=== PATIENT | female | born 1985 | race Caucasian/White ===

== ENCOUNTER 2018-10-21 05:21 | Emergency (ER) | payer BC ==
--- NOTE | 2018-10-21 05:44 | EDM.PDOC ---
ED HPI GENERAL MEDICAL PROBLEM - General Chief Complaint: Back Pain or Injury Stated Complaint: back pain Time Seen by Provider: 10/21/18 05:43 - History of Present Illness INITIAL COMMENTS - FREE TEXT/NARRATIVE: 33-year-old female presents emergency room with low back pain. Patient is an on-and-off low back pain for the last 4 weeks or so. She is 10 weeks . 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 She denies burning or frequency with urination. No fevers or chills. Her course is uneventful. Patient has not been using nonsteroidal anti-inflammatory medications as she is post gastric bypass surgery. Patient has not had any loss of bowel or bladder control no lower extremity like radicular symptoms. Lower Back Pain Score (Numeric/FACES): 8 - Related Data Allergies Allergy/AdvReac Type Severity Reaction Status Date / Time amoxicillin Allergy Anaphylactic Verified 10/21/18 05:37 Shock azithromycin [From Zithromax] Allergy Hives Verified 10/21/18 05:37 cephalexin [From Keflex] Allergy Hives Verified 10/21/18 05:37 Latex, Natural Rubber Allergy Rash Verified 10/21/18 05:37 Penicillins Allergy Anaphylactic Verified 10/21/18 05:37 Shock Home Meds: Home Meds Cyclobenzaprine [Flexeril] 10 mg PO BEDTIME #15 tab 10/21/18 [Rx] Past Medical History HEENT History: Reports: Impaired Vision (wears glasses) Gastrointestinal History: Reports: GER[employer] History: Reports: Polycystic Ovaries Psychiatric History: Reports: Anxiety (history of, took medications until 2016) Endocrine/Metabolic History: Reports: Obesity/BMI 30+ - Past Surgical History HEENT Surgical History: Reports: Tonsillectomy (adenoidectomy), Other (See Below ) ([place] tooth extraction) GI Surgical History: Reports: Bariatric Procedure (Lap band 2008, [place]-en-Y 2016) Social & Family History - Living Situation & Occupation Living situation: Reports: , with Spouse Occupation: Employed ED ROS GENERAL - Review of Systems Review Of Systems: See Below Constitutional: Reports: No Symptoms. Denies: Fever, Chills Respiratory: Reports: No Symptoms Cardiovascular: Reports: No Symptoms Endocrine: Reports: No Symptoms GI/Abdominal: Reports: No Symptoms : Reports: No Symptoms Musculoskeletal: Reports: Back Pain Skin: Reports: No Symptoms ED EXAM,LOWER BACK PAIN/INJURY - Physical Exam Exam: See Below General Appearance: Alert, No Apparent Distress Ears: Normal External Exam Head: Atraumatic, Normocephalic Neck: Normal Inspection, Supple, Non-Tender, Full Range of Motion Respiratory/Chest: No Respiratory Distress, Lungs Clear, Normal Breath Sounds Cardiovascular: Regular Rate, Rhythm, No Edema, No Murmur GI/Abdominal: Normal Bowel Sounds, Soft, Other (Suprapubic discomfort with palpation). No: Distended, Guarding, Rigid, Rebound Back Exam: Normal Inspection, Other (Straight leg raises are unremarkable she has no midline discomfort or pain is more over the upper SI joints bilaterally however I cannot elicit pain with palpation). No: CVA Tenderness (L), CVA Tenderness (R) Neurological: Alert, Normal Dorsiflexion Course - Vital Signs Last Recorded V/S: Last Vital Signs Temp 36.9 C 10/21/18 05:34 Pulse 65 10/21/18 05:34 Resp 18 10/21/18 05:34 BP 112/75 10/21/18 05:34 Pulse Ox 100 10/21/18 05:34 - Orders/Labs/Meds Orders: Active Orders 24 hr Category Date Time Status Insert Coronado Catheter [Insert Urinary Catheter] [OM.PC] Care 10/21/18 07:15 Ordered Stat Urinary Catheter Assessment [RC] ASDIRECTED Care 10/21/18 07:15 Active Labs: Laboratory Tests 10/21/18 10/21/18 Range/Units 06:15 07:15 Urine Color Yellow Yellow (Yellow) Urine Appearance Clear Clear (Clear) Urine pH 7.0 7.0 (5.0-8.0) Ur Specific [place] 1.020 1.015 (1.005-1.030) Urine Protein Negative Negative (Negative) Urine Glucose (UA) Negative Negative (Negative) Urine Ketones Negative Negative (Negative) Urine Occult Blood Negative Negative (Negative) Urine Nitrite Negative Negative (Negative) Urine Bilirubin Negative Negative (Negative) Urine Urobilinogen 0.2 0.2 (0.2-1.0) Ur Leukocyte Esterase 2+ H Negative (Negative) Urine RBC 0-5 Not seen (0-5) /hpf Urine WBC 5-10 H Not seen (0-5) /hpf Ur Epithelial Cells 5-10 H 0-5 (0-5) /hpf Urine Bacteria Few Not seen (FEW) /hpf Urine Mucus Not seen Not seen (FEW) /hpf - Re-Assessments/Exams Free Text/Narrative Re-Assessment/Exam: 10/21/18 07:19 Initial urine showed 2+ esterase 5-10 WBCs 5-10 epithelial cells. Followed up with a UA which is pending at this moment the patient's symptoms insure points were no muscle skeletal etiology however with her suprapubic discomfort there is some question. 10/21/18 07:52 Follow-up cath UA is entirely normal Departure - Departure Time of Disposition: 07:52 Disposition: Home, Self-Care 01 Clinical Impression: Low back pain during , antepartum, Low back pain - Discharge Information Prescriptions: Cyclobenzaprine [Flexeril] 10 mg PO BEDTIME #15 tab Referrals: Mariann Dukes MD [Primary Care Provider] - Forms: ED Department Discharge Additional Instructions: Return to the emergency room with any questions problems worsening symptoms. Follow-up with your regular provider early next week, discussed the possibilities of going to physical therapy. Use Tylenol 650-1000 mg 4 times a day, 4000 mg a day is your absolute maximum dose. Use of Flexeril one every evening for at least 7 days and then as needed. Do not drive or returning to work within 12 hours using this medication however. - My Orders Last 24 Hours: My Active Orders 10/21/18 07:15 Insert Coronado Catheter [Insert Urinary Catheter] [OM.PC] Stat Urinary Catheter Assessment [RC] ASDIRECTED - Assessment/Plan Last 24 Hours: My Active Orders 10/21/18 07:15 Insert [place] Catheter [Insert Urinary Catheter] [OM.PC] Stat Urinary Catheter Assessment [RC] ASDIRECTED
== END 2018-10-21 08:08 | disposition home or self-care (01) ==
LOC: JD.ED 05:21
DX: O99.89 Other specified diseases and conditions complicating pregnancy, childbirth and the puerperium (principal); M54.5 Low back pain; Z88.8 Allergy status to other drugs, medicaments and biological substances; Z88.1 Allergy status to other antibiotic agents; Z91.040 Latex allergy status; Z88.0 Allergy status to penicillin
CPT/HCPCS: 81001; 99283

== ENCOUNTER 2021-12-24 20:13 | Inpatient (IN) | payer BC ==
[2021-12-24] MEDS ORDERED: Calcium Carbonate 500 MG Tab.Chew PO PRN (20:34)
[2021-12-24] MEDS ORDERED: Ondansetron 4 MG/2 ML SDV IVPUSH PRN (20:34)
[2021-12-24] MEDS ORDERED: Lidocaine 1% 50 ML MDV INJECT ONE (20:34)
[2021-12-24] MEDS ORDERED: Nalbuphine 10 MG/1 ML Vial IVPUSH PRN (20:34)
[2021-12-24] MEDS ORDERED: Oxytocin/Lactated Ringers 10 UNIT/1,000 ML BAG IV SCH ×2 (20:45)
[2021-12-24] MEDS ORDERED: Clindamycin Phosphate in D5W 900 MG in Premix Bag 1 BAG IV SCH ×2 (21:00)
[2021-12-24] MEDS ORDERED: Bupivacaine/fentaNYL/NS 100 ML Bag EPIDUR PRN (21:16)
[2021-12-24] MEDS ORDERED: diphenhydrAMINE 50 MG/ML SDV IVPUSH PRN (21:16)
[2021-12-24] MEDS ORDERED: ePHEDrine 50 MG/ML SDV IVPUSH PRN (21:16)
[2021-12-24] MEDS ORDERED: fentaNYL 100 MCG/2 ML SDV EPIDUR PRN (21:16)
[2021-12-24] MEDS: Lactated Ringers 1,000 ML IV SCH ×2 (21:28→23:26)
[2021-12-25] MEDS ORDERED: Bupivacaine 0.25% 10 ML SDV ONE
[2021-12-25] MEDS ORDERED: Benzocaine/Menthol 20%-0.5% Spray 78 GM Cannister TOP PRN (01:10)
[2021-12-25] MEDS ORDERED: Docusate Sodium 100 MG Cap PO PRN (01:10)
[2021-12-25] MEDS ORDERED: Acetaminophen 325 MG Tab PO PRN (01:10)
[2021-12-25] MEDS ORDERED: Witch Hazel Medicated Pads 40/Jar TOP PRN (01:10)
[2021-12-25] MEDS: Ibuprofen 600 MG Tab PO PRN ×2 (13:04→19:57)
[2021-12-25] MEDS: Prenatal Multivitamin with Calcium/Folic Acid/Iron Tab PO SCH (19:29)
[2021-12-25] MEDS: Citalopram 20 MG Tab PO SCH (19:29)
[2021-12-26] MEDS: Ibuprofen 600 MG Tab PO PRN ×2 (06:44→18:59)
[2021-12-26] MEDS: Citalopram 20 MG Tab PO SCH (19:00)
[2021-12-26] MEDS: Prenatal Multivitamin with Calcium/Folic Acid/Iron Tab PO SCH (19:00)
[2021-12-27] MEDS: Prenatal Multivitamin with Calcium/Folic Acid/Iron Tab PO SCH (15:29)
[2021-12-27] MEDS: Citalopram 20 MG Tab PO SCH (15:29)
== END 2021-12-27 12:40 | disposition home or self-care (01) | DRG 560 ==
LOC: JD.OBCHECK 20:13 → JD.OB 20:19 → JD.OBCHECK 20:37 → JD.OB 20:38 → OBSVTOIN 12-25 → JD.OB 12-25 00:01
PROVIDERS: ADMIT Obstetrics & Gynecology; ATTEND Obstetrics & Gynecology
PROC: 10E0XZZ Delivery of Products of Conception, External Approach (ICD-10-PCS; principal; 2021-12-25)
PROC: 0HQ9XZZ Repair Perineum Skin, External Approach (ICD-10-PCS; 2021-12-25)
PROC: 3E0R3BZ Introduction of Anesthetic Agent into Spinal Canal, Percutaneous Approach (ICD-10-PCS; 2021-12-25)
PROC: 00HU33Z Insertion of Infusion Device into Spinal Canal, Percutaneous Approach (ICD-10-PCS; 2021-12-25)
DX: O99.214 Obesity complicating childbirth (principal); O99.62 Diseases of the digestive system complicating childbirth; Z37.0 Single live birth; K21.9 Gastro-esophageal reflux disease without esophagitis; E66.01 Morbid (severe) obesity due to excess calories; O70.0 First degree perineal laceration during delivery; Z20.822 Contact with and (suspected) exposure to COVID-19; Z87.891 Personal history of nicotine dependence; Z3A.38 38 weeks gestation of pregnancy; Z91.040 Latex allergy status; Z88.0 Allergy status to penicillin; Z98.84 Bariatric surgery status
CPT/HCPCS: 36415; 51701; 59025; 59409; 85025; 86592; 86850; 86900; 86901; A9270-GY; J2590; J3010; J3490; J7120; U0002